=== PATIENT | male | born 1965 | race Caucasian/White ===

== ENCOUNTER → 2016-07-21 | Outpatient (CLI) | payer OTHER ==
[~2016-07-21] MED LIST: CLIN300C10 PO; LCTX PO; MULT-506 PO; NCDT14 TD; OXYC5TAB PO
== END | disposition home or self-care (01) ==
LOC: C.LABPBG 11:20
PROVIDERS: ATTEND Family Medicine
DX: M54.12 Radiculopathy, cervical region (principal)

== ENCOUNTER → 2016-10-12 | Outpatient (CLI) | payer OTHER ==
--- NOTE | 2016-10-12 12:50 | DIAGNOSTIC IMAGING REPORT ---
RIGHT SHOULDER MIN 2 VIEWS ROUTINE CLINICAL HISTORY: 51 years-old Male presenting with right shoulder pain. TECHNIQUE: Internal rotation, external rotation, and Grashey views of the right shoulder were obtained. COMPARISON: None. FINDINGS: Glenohumeral and acromioclavicular joints congruent. Calcification superior to the greater tuberosity along the course of the rotator cuff insertion site. No acute fracture or malalignment. Visualized portion of the right lung clear. IMPRESSION: 1. No acute osseous injury of the right shoulder. 2. Calcification along the insertion site of the rotator cuff may indicate hydroxyapatite deposition in the setting of calcific tendinitis. Electronically signed by: Jacobo Vance M.D. 10/12/2016 12:49 PM Dictated Date/Time: 10/12/2016 12:47 PM
== END | disposition home or self-care (01) ==
LOC: C.RAD 12:23
PROVIDERS: ATTEND Family Medicine
DX: M25.511 Pain in right shoulder (principal)

== ENCOUNTER → 2017-01-14 | Outpatient (CLI) | payer OTHER ==
--- NOTE | 2017-01-14 12:56 | DIAGNOSTIC IMAGING REPORT ---
FLUOROSCOPIC GUIDED RIGHT SHOULDER ARTHROGRAM FLUOROSCOPY TIME: 1 second. HISTORY: Right shoulder pain.. PROCEDURE: After obtaining written informed consent, the patient was placed supine on the fluoroscopy table. A suitable site for needle insertion was marked using fluoroscopic guidance. The right shoulder was prepped and draped in the usual sterile fashion. 1% lidocaine was used for skin, subcutaneous and deep soft tissue anesthesia. Under intermittent fluoroscopic guidance, a 22 gauge 2.5 inch spinal needle was inserted into the right glenohumeral joint. A total of 14 cc of Optiray 300 was injected. The needle was then removed. There were no apparent complications. The patient was transported to CT for further imaging. IMPRESSION: Fluoroscopic-guided right shoulder arthrogram without immediate complication. Total injected volume was [address] portion of the examination will be dictated separately. Electronically signed by: Qamar Collado M.D. 01/14/2017 12:54 PM Dictated Date/Time: 01/14/2017 12:52 PM
--- NOTE | 2017-01-14 13:22 | DIAGNOSTIC IMAGING REPORT ---
RIGHT SHOULDER CT with INTRA-ARTICULAR CONTRAST HISTORY: CALCIFIC TENDINITIS R Shoulder, r SHOULDER PAIN TECHNIQUE: Multiaxial CT images of the right shoulder was performed following the intra-articular injection of contrast. Sagittal coronal reformations are also obtained. COMPARISON STUDY: Right shoulder 10/12/2016. FINDINGS: AC joint: Mild AC joint arthrosis demonstrated by cartilage space narrowing and small marginal osteophytes. Rotator cuff: The rotator cuff appears to be grossly intact. No evidence for full-thickness rotator cuff tear. An 8 mm focal calcification at the distal supraspinatus tendon consistent with calcific tendinitis. Labrum: Focal truncation of the superior and posterior labrum. Biceps tendon: Mild thickening of the long head of the biceps tendon within the bicipital groove. This may represent a mild tendinopathy. Bones: No fracture or dislocation. Cartilage: Mild cartilage thinning within the humeral head and glenoid. Miscellaneous: The visualized right lung is clear. No lymphadenopathy within the right axilla. IMPRESSION: 1. Focal calcification at the distal supraspinatus tendon consistent with calcific tendinitis. 2. No evidence for rotator cuff tear. 3. Focal truncation of the superior and posterior labrum which may be due to degeneration versus a small tear. 4. Mild tendinopathy of the long head of the biceps tendon. Electronically signed by: Qamar Collado M.D. 01/14/2017 1:21 PM Dictated Date/Time: 01/14/2017 12:55 PM
== END | disposition home or self-care (01) ==
LOC: C.RAD 11:11
PROVIDERS: ATTEND Orthopaedic Surgery
DX: M75.31 Calcific tendinitis of right shoulder (principal)